=== PATIENT | female | born 1945 | race Two or more races ===

== ENCOUNTER 2025-01-17 14:47 | Inpatient (IN) | payer OTHER ==
[~2025-01-17] VITALS: Ht 152.4 cm; Wt 67.1 kg
[2025-01-17] MEDS ORDERED: METFORMIN HCL500 M3 PO (15:44)
[2025-01-17] MEDS ORDERED: ATORVALIQ20 MG/5 ML (15:46)
[2025-01-17] MEDS ORDERED: GLIMEPIRIDE2 MG (15:46)
[2025-01-17] MEDS ORDERED: TOPROL XL50 M1 (15:46)
[2025-01-17] MEDS ORDERED: CARDURA XL4 MG (15:46)
[2025-01-17] MEDS ORDERED: LEVOXYL75 MCG (15:46)
[2025-01-17] MEDS ORDERED: METRONIDAZOLE500 MG (15:47)
[2025-01-17] MEDS ORDERED: COZAAR100 MG (15:47)
--- NOTE | 2025-01-17 15:57 | NUR ---
PTE ALERTA Y ORIENTADA X3 ACOMPANADA DE [place]. PTE REFIERE VENIR A MAYELA YA QUE PRESENTA DOLOR EN EL AREA DEL ANO A [place] DE MARIA ESTHER FISTULA. REFIERE SER PTE DE DR. LINDA DIA QUIEN LE INDICO PASAR POR MAYELA DE EMERGENCIAS. SE MARIA LUZ S/V Y SE UBICA EN MERRILL NIVEL MAS BAJO Y BARANDAS ELEVADAS POR SEGURIDAD.
[2025-01-17] MEDS ORDERED: FAMOtidine 10 MG/ML (4ML VIAL) IV ONE (16:45)
[2025-01-17] MEDS ORDERED: 0.9 % SODIUM CHLORIDE 1,000 ML IV ONE (16:45)
--- NOTE | 2025-01-17 17:20 | NUR ---
SE ORIENTA A PTE SOBRE TX MEDICO PACIENTE REFIERE ENTENDER Y ACEPTAR. SE COLOCA H/L EN [place], SE RECOLECTAN MUESTRAS DE LAB Y SE ADMISNITAN MEDICAMENTOS MICHAEL ORDEN MEDICA BAJO MEDIDAS ASEPTICAS.
[2025-01-17 17:24] LABS: BASO % 0.2 % (0.1-1.2); EOS # 0.39 (0.04-0.54); EOS % 3.2 % (0.7-7.0); LYMPH # 1.91 (1.18-3.74); LYMPH % 15.9 % (19.3-53.1); MEAN PLATELET VOLUME 9.10 fl (9.4-12.4); MONO # 0.90 (0.24-0.82); MONO % 7.5 % (4.7-12.5); NEUT # 8.74 (1.56-6.13); NEUT % 72.8 % (34.0-71.1); RED CELL DISTRIBUTION WIDTH 14.4 % (11.6-14.4)
[2025-01-17 17:44] LABS: INR 1.12
[2025-01-17 17:50] LABS: ALT/SGPT 13.0 U/L (12-78); AST/SGOT 15.0 U/L (15-37); BILIRUBIN TOTAL 0.29 mg/dL (0.3-1.2); BUN CREA RATIO 16.0 (7.0-25.0); CREATININE SERUM 1.65 mg/dL (0.55-1.02); GFR 29.93; GLOBULINA 4.2 G/DL (2.4-3.5); GLUCOSE FASTING 94.0 mg/dL (65-100); OSMOLALITY SERUM 292.0 MOSM/KG (275-295)
[2025-01-17] MEDS ORDERED: KETOROLAC TROMETHAMINE 30 MG VIAL IV ONE (18:30)
[2025-01-17 18:48] LABS: URINE APPEARANCE Turbid; URINE BILIRRUBIN Small (NEGATIVE); URINE BLOOD Large; URINE COLOR Dark Yellow; URINE GLUCOSE Negative (NEGATIVE); URINE KETONE Trace (NEGATIVE); URINE LEUKOCYTE Large; URINE NITRATE Negative; URINE UROBILINOGEN 1.0 E.U./dl
[2025-01-17 18:53] LABS: URINE EPITHELIAL CELLS 39.0 uL (0.0-38.8); URINE RBC 655.8 uL (0.0-20.8); URINE WBC 580.7 uL (0.0-23.2)
[2025-01-17 21:00] LABS: URINE BACTERIA > 9821.5 uL (0.0-1933); URINE CAST > 21.83 uL (0.0-1.40); URINE CRYSTALS MODERATE /HPF; URINE PROTEIN 100 (NEGATIVE); URINE YEAST FEW /hpf
[2025-01-17] MEDS ORDERED: PIPERACILLIN/TAZOBACTAM SODIUM 3.375 GM VIAL IV SCH (22:41)
[2025-01-17] MEDS ORDERED: LOSARTAN POTASSIUM 100 MG TABLET PO SCH (22:43)
[2025-01-17] MEDS ORDERED: METOPROLOL TARTRATE 50 MG TABLET PO SCH (22:43)
[2025-01-17] MEDS ORDERED: 0.9 % SODIUM CHLORIDE 1,000 ML IV SCH (22:45)
[2025-01-17] MEDS ORDERED: INSULIN LISPRO 1,000 UNIT/10 ML UNITS SUBCUTANEO PRN (22:45)
[2025-01-17] MEDS ORDERED: MORPHINE SULFATE 2 MG/ML CARTRIDGE IV PRN (22:45)
[2025-01-17] MEDS ORDERED: DEXTROSE 50 % IN WATER 0.5 G/ML DISP.SYRIN IV PRN (22:45)
[2025-01-17] MEDS ORDERED: ONDANSETRON HCL 4 MG in 0.9 % SODIUM CHLORIDE 50 ML IV PRN (22:45)
[2025-01-17 23:19] VITALS: BP 129/67
[2025-01-18 00:04] VITALS: BP 151/68; O2SAT 95
[2025-01-18 02:42] VITALS: BP 166/63; O2SAT 97
[2025-01-18 08:00] VITALS: BP 154/53; O2SAT 97
[2025-01-18 08:17] VITALS: BP 154/53; O2SAT 97
[2025-01-18] MEDS ORDERED: MAGNESIUM CITRATE 296 ML BOTTLE PO NR (12:45)
[2025-01-18 17:06] VITALS: BP 143/55; O2SAT 96
[2025-01-19] MEDS ORDERED: CEFTRIAXONE SODIUM 2,000 MG in 0.9 % SODIUM CHLORIDE 50 ML IV NR
[2025-01-19 00:52] VITALS: BP 153/64; O2SAT 97
[2025-01-19 08:00] VITALS: BP 160/60; O2SAT 97
[2025-01-19 12:00] VITALS: BP 160/58
[2025-01-19 17:59] VITALS: BP 154/66; O2SAT 96
[2025-01-19 21:15] VITALS: BP 183/67
[2025-01-20 07:07] LABS: BUN CREA RATIO 10.0 (7.0-25.0); CREATININE SERUM 0.8 mg/dL (0.55-1.02); GFR 69.01; GLUCOSE FASTING 64.0 mg/dL (65-100); OSMOLALITY SERUM 291.0 MOSM/KG (275-295)
[2025-01-20 08:00] VITALS: BP 106/66; BP 180/63; O2SAT 96; O2SAT 97
[2025-01-20] MEDS ORDERED: MORPHINE SULFATE 2 MG/ML CARTRIDGE IV PRN (12:45)
[2025-01-20] MEDS ORDERED: AMLODIPINE BESYLATE 2.5 MG TABLET PO NR (15:30)
[2025-01-20 17:14] VITALS: BP 178/83; O2SAT 95
[2025-01-21 01:06] VITALS: BP 150/50; O2SAT 96
[2025-01-21 07:08] LABS: BASO % 0.2 % (0.1-1.2); EOS # 0.52 (0.04-0.54); EOS % 5.9 % (0.7-7.0); LYMPH # 1.63 (1.18-3.74); LYMPH % 18.6 % (19.3-53.1); MEAN PLATELET VOLUME 9.60 fl (9.4-12.4); MONO # 0.52 (0.24-0.82); MONO % 5.9 % (4.7-12.5); NEUT # 6.02 (1.56-6.13); NEUT % 69.1 % (34.0-71.1); RED CELL DISTRIBUTION WIDTH 15.1 % (11.6-14.4)
[2025-01-21 07:40] LABS: BUN CREA RATIO 9.0 (7.0-25.0); CREATININE SERUM 0.67 mg/dL (0.55-1.02); GFR 84.69; GLUCOSE FASTING 79.0 mg/dL (65-100); OSMOLALITY SERUM 289.0 MOSM/KG (275-295)
[2025-01-21] MEDS ORDERED: AMLODIPINE BESYLATE 2.5 MG TABLET PO SCH (09:00)
[2025-01-21] MEDS ORDERED: SOD FERRIC GLUC COMPLX/SUCROSE 62.5 MG in 0.9 % SODIUM CHLORIDE 50 ML IV SCH (09:00)
[2025-01-21 17:00] VITALS: BP 180/80; O2SAT 97
[2025-01-21] MEDS ORDERED: ENALAPRILAT DIHYDRATE 1.25 MG/ML VIAL IV PRN (18:00)
[2025-01-21] MEDS ORDERED: AMLODIPINE BESYLATE 2.5 MG TABLET PO NR ×2 (18:30)
[2025-01-21 20:10] VITALS: BP 200/70
[2025-01-21] MEDS ORDERED: hydrALAZINE HCL 20 MG VIAL IV STA (20:36)
[2025-01-21] MEDS ORDERED: hydrALAZINE HCL 20 MG VIAL IV PRN (20:45)
[2025-01-21] MEDS ORDERED: NITROGLYCERIN IN 5 % DEXTROSE 250 ML IV SCH (22:30)
[2025-01-22] VITALS (13 sets, daily range): BP systolic 132–160; BP diastolic 49–70; O2SAT 93–98
[2025-01-22] MEDS ORDERED: AMLODIPINE BESYLATE 5 MG TABLET PO SCH (09:00)
[2025-01-22] MEDS ORDERED: ACETAMINOPHEN 500 MG GEL..CAP PO PRN (13:15)
[2025-01-22] MEDS ORDERED: AMLODIPINE BESYLATE 5 MG TABLET PO NR (13:30)
[2025-01-22] MEDS ORDERED: DOXAZOSIN MESYLATE 2 MG TABLET PO SCH (21:00)
[2025-01-22] MEDS ORDERED: DOXAZOSIN MESYLATE 4 MG TABLET PO SCH (21:00)
[2025-01-23] VITALS (9 sets, daily range): BP systolic 147–163; BP diastolic 55–62; O2SAT 93–98
[2025-01-23] MEDS ORDERED: NITROGLYCERIN IN 5 % DEXTROSE 250 ML IV SCH (09:00)
[2025-01-23] MEDS ORDERED: AMLODIPINE BESYLATE 10 MG TABLET PO SCH (09:00)
[2025-01-23 10:35] LABS: BASO % 0.3 % (0.1-1.2); EOS # 0.54 (0.04-0.54); EOS % 4.7 % (0.7-7.0); LYMPH # 1.73 (1.18-3.74); LYMPH % 15.1 % (19.3-53.1); MEAN PLATELET VOLUME 9.50 fl (9.4-12.4); MONO # 0.95 (0.24-0.82); MONO % 8.3 % (4.7-12.5); NEUT # 8.13 (1.56-6.13); NEUT % 71.2 % (34.0-71.1)
[2025-01-23 11:03] LABS: RED CELL DISTRIBUTION WIDTH 18.4 % (11.6-14.4)
[2025-01-24] VITALS (7 sets, daily range): BP systolic 148–162; BP diastolic 63–78; O2SAT 92–99
[2025-01-24] MEDS ORDERED: DEXTROSE 50 % IN WATER 0.5 G/ML VIAL IV ONE (00:52)
[2025-01-24] MEDS ORDERED: BUPIVACAINE HCL/MPF 0.5% 30ML VIAL ONE (07:33)
[2025-01-24] MEDS ORDERED: LIDOCAINE HCL 1%/EPINEPHRINE 20ML VIAL IJ ONE (07:33)
[2025-01-24 08:05] LABS: BUN CREA RATIO 13.0 (7.0-25.0); CREATININE SERUM 0.63 mg/dL (0.55-1.02); GFR 90.92; GLUCOSE FASTING 66.0 mg/dL (65-100); OSMOLALITY SERUM 287.0 MOSM/KG (275-295)
[2025-01-24] MEDS ORDERED: DEXTROSE 50 % IN WATER 0.5 G/ML VIAL IV PRN (08:15)
[2025-01-24] MEDS ORDERED: ONDANSETRON HCL 2 MG/ML VIAL IV PRN (08:15)
[2025-01-24] MEDS ORDERED: 0.9 % SODIUM CHLORIDE 1,000 ML IV SCH (08:15)
[2025-01-24] MEDS ORDERED: MORPHINE SULFATE 4 MG/ML CARTRIDGE IV PRN (08:15)
[2025-01-24] MEDS ORDERED: OxyCODONE HCL 5 MG TABLET (ROXICODONE) PO PRN (08:15)
[2025-01-24] MEDS ORDERED: SUGAMMADEX SODIUM 200 MG/2 ML VIAL IV ONE (08:36)
[2025-01-24] MEDS ORDERED: FAMOTIDINE/PF 20 MG/2 ML VIAL IV PUSH SCH (09:00)
[2025-01-24] MEDS ORDERED: HYOSCYAMINE SULFATE 0.125 MG TAB.SUBL SL SCH (09:00)
[2025-01-24] MEDS ORDERED: FAMOTIDINE/PF 20 MG/2 ML VIAL ONE (11:00)
[2025-01-24] MEDS ORDERED: MORPHINE SULFATE 4 MG/ML VIAL IV ONE (11:00)
[2025-01-24 11:49] LABS: BASO % 0.2 % (0.1-1.2); EOS # 0.16 (0.04-0.54); EOS % 1.3 % (0.7-7.0); LYMPH # 1.09 (1.18-3.74); LYMPH % 8.9 % (19.3-53.1); MEAN PLATELET VOLUME 9.70 fl (9.4-12.4); MONO # 0.76 (0.24-0.82); MONO % 6.2 % (4.7-12.5); NEUT # 10.11 (1.56-6.13); NEUT % 83.1 % (34.0-71.1); RED CELL DISTRIBUTION WIDTH 19.2 % (11.6-14.4)
[2025-01-24 12:57] LABS: BUN CREA RATIO 11.0 (7.0-25.0); CREATININE SERUM 0.66 mg/dL (0.55-1.02); GFR 86.17; GLUCOSE FASTING 105.0 mg/dL (65-100); OSMOLALITY SERUM 287.0 MOSM/KG (275-295)
[2025-01-24] MEDS ORDERED: ACETAMINOPHEN 500 MG GEL..CAP PO SCH (14:00)
[2025-01-25] VITALS (9 sets, daily range): BP systolic 120–149; BP diastolic 65–69; O2SAT 90–97
[2025-01-25 05:32] LABS: BASO % 0.3 % (0.1-1.2); EOS # 0.77 (0.04-0.54); EOS % 6.5 % (0.7-7.0); LYMPH # 1.45 (1.18-3.74); LYMPH % 12.2 % (19.3-53.1); MEAN PLATELET VOLUME 9.90 fl (9.4-12.4); MONO # 0.91 (0.24-0.82); MONO % 7.7 % (4.7-12.5); NEUT # 8.69 (1.56-6.13); NEUT % 73.0 % (34.0-71.1); RED CELL DISTRIBUTION WIDTH 19.1 % (11.6-14.4)
[2025-01-25 05:57] LABS: BUN CREA RATIO 12.0 (7.0-25.0); CREATININE SERUM 0.74 mg/dL (0.55-1.02); GFR 75.51; GLUCOSE FASTING 81.0 mg/dL (65-100); OSMOLALITY SERUM 290.0 MOSM/KG (275-295)
[2025-01-25] MEDS ORDERED: MAGNESIUM SULFATE IN WATER 4 GM/100 ML PIGGYBACK IV NR (11:05)
[2025-01-25] MEDS ORDERED: ENOXAPARIN SODIUM 40 MG/0.4 ML SYRINGE SUBCUTANEO SCH (17:00)
[2025-01-25] MEDS ORDERED: PIPERACILLIN/TAZOBACTAM SODIUM 3.375 GM VIAL IV SCH (22:00)
[2025-01-26] VITALS (8 sets, daily range): BP systolic 125–146; BP diastolic 54–67; O2SAT 95–100
[2025-01-26] MEDS ORDERED: ENOXAPARIN SODIUM 40 MG/0.4 ML SYRINGE SUBCUTANEO SCH (09:00)
[2025-01-26] MEDS ORDERED: MetFORMIN HCL 500 MG TABLET PO SCH (10:29)
[2025-01-26] MEDS ORDERED: VANCOMYCIN HCL 1,000 MG VIAL ONE ×2 (15:16→22:52)
[2025-01-26] MEDS ORDERED: VANCOMYCIN HCL 1,000 MG VIAL IV SCH (17:00)
[2025-01-26 18:50] LABS: URINE APPEARANCE Clear; URINE BILIRRUBIN Negative (NEGATIVE); URINE BLOOD Trace; URINE COLOR Yellow; URINE GLUCOSE Negative (NEGATIVE); URINE KETONE Negative (NEGATIVE); URINE LEUKOCYTE Trace; URINE NITRATE Negative; URINE PROTEIN Negative (NEGATIVE); URINE UROBILINOGEN 0.2 E.U./dl
[2025-01-26 18:51] LABS: URINE RBC 296.1 uL (0.0-20.8); URINE WBC 24.9 uL (0.0-23.2)
[2025-01-26 19:09] LABS: URINE BACTERIA 3.5 uL (0.0-1933); URINE CAST 0.00 uL (0.0-1.40); URINE EPITHELIAL CELLS 1.2 uL (0.0-38.8); URINE YEAST MODERATE /hpf
[2025-01-26] MEDS ORDERED: PIPERACILLIN/TAZOBACTAM SODIUM 3.375 GM VIAL IV SCH (20:00)
[2025-01-27 00:08] VITALS: BP 135/74; O2SAT 98
[2025-01-27] MEDS ORDERED: LEVOTHYROXINE SODIUM 75 MCG TABLET PO SCH (06:00)
[2025-01-27 08:27] VITALS: BP 153/61; O2SAT 94
[2025-01-27 13:47] VITALS: O2SAT 95
[2025-01-27] MEDS ORDERED: VANCOMYCIN HCL 1,000 MG VIAL ONE ×2 (14:13→22:50)
[2025-01-27 16:34] VITALS: O2SAT 95
[2025-01-27] MEDS ORDERED: LACTOBACILLUS ACIDOPHILUS 1 CAP CAP PO SCH (17:00)
[2025-01-27] MEDS ORDERED: FLUCONAZOLE IN NACL,ISO-OSM 200 MG/100 ML PIGGYBAG IV NR (17:00)
[2025-01-27 20:38] VITALS: O2SAT 96
[2025-01-27] MEDS ORDERED: PHENAZOPYRIDINE HCL 100 MG TABLET PO SCH (21:00)
[2025-01-28 00:10] VITALS: O2SAT 98
[2025-01-28 00:15] VITALS: BP 138/77; O2SAT 96
[2025-01-28 02:48] VITALS: O2SAT 90
[2025-01-28 08:27] VITALS: BP 163/71; O2SAT 95
[2025-01-28 08:49] VITALS: O2SAT 94
[2025-01-28 12:59] VITALS: O2SAT 94
[2025-01-28] MEDS ORDERED: FLUCONAZOLE IN NACL,ISO-OSM 50 ML IV SCH (17:00)
[2025-01-28] MEDS ORDERED: FLUCONAZOLE IN NACL,ISO-OSM 2 MG/ML ML IV SCH (17:00)
== END 2025-01-28 13:14 | disposition home or self-care (01) | DRG 330 ==
LOC: ER 14:47 → SURG 22:26 → SURH 22:26 → SURG 23:35 → O/R 01-19 08:58 → SURG 01-19 08:59
PROVIDERS: General Practice; Internal Medicine Infectious Disease; Surgery; ADMIT Internal Medicine; ATTEND Internal Medicine
PROC: BW21ZZZ Computerized Tomography (CT Scan) of Abdomen and Pelvis (ICD-10-PCS; 2025-01-17)
PROC: B24BYZZ Ultrasonography of Heart with Aorta using Other Contrast (ICD-10-PCS; 2025-01-20)
PROC: 4A12X4Z Monitoring of Cardiac Electrical Activity, External Approach (ICD-10-PCS; 2025-01-22)
PROC: 02HV33Z Insertion of Infusion Device into Superior Vena Cava, Percutaneous Approach (ICD-10-PCS; 2025-01-23)
PROC: 30243N1 Transfusion of Nonautologous Red Blood Cells into Central Vein, Percutaneous Approach (ICD-10-PCS; 2025-01-23)
PROC: 0DBL4ZZ Excision of Transverse Colon, Percutaneous Endoscopic Approach (ICD-10-PCS; principal; 2025-01-24 07:30)
DX: N82.3 Fistula of vagina to large intestine (principal); N17.9 Acute kidney failure, unspecified; D72.829 Elevated white blood cell count, unspecified; D01.3 Carcinoma in situ of anus and anal canal; D64.9 Anemia, unspecified